=== PATIENT | female | born 1950 | race Caucasian/White ===

== ENCOUNTER → 2017-12-18 | Outpatient (CLI) | payer MEDICARE, BC ==
[~2017-12-18] MED LIST: ALLEGRA180 MG PO; ALLER-TEC D 5-1 EACH PO; ARIXTRA; BENICAR HCT 401 EAC1 PO; CALCIUM 600 +1 EA14 PO; CELEXA20 MG PO; CIPRO500 MG; CIPRO500 MG PO; COLACE100 MG PO; COZAAR 50 MG TA50 M2 PO; CYMBALTA60 MG PO; D3 DOTS2000 UNIT; ESTRACE1 MG PO; GLUCOPHAGE1000 MG PO; HYDROCODONE-AP1 EAC6 PO; JANUMET 50-1,01 EACH PO; KEFLEX500 MG PO; LEVSIN0.125 MG PO; METAMUCIL PAC1 UDPKT GT; MIRALAX255 GM PO; MOBIC15 MG PO; MOM; MUCINEX PO; MUCINEX600 MG PO; NORCO 5-325 TA1 EACH PO; OMEPRAZOLE40 MG PO; OXYCONTIN10 M1 PO; OXYIR 5 MG CAPSU5 M1 PO; PHENAZOPYRIDIN200 M2 PO; RANITIDINE HCL300 M1 PO; SIMVASTATIN40 MG PO; SUPER B COMPLE150 MG PO; TRAMADOL 50 MG50 MG PO; TRICOR145 MG PO; ZOCOR 20 MG TAB20 M1 PO
== END ==
LOC: M.MRI 08:04
DX: M19.011 Primary osteoarthritis, right shoulder (principal); M75.101 Unspecified rotator cuff tear or rupture of right shoulder, not specified as traumatic

== ENCOUNTER → 2018-07-15 | Outpatient (CLI) | payer MEDICARE, BC | LOC: M.ULTRA 12:45 → M.RAD 13:30 | DX: Z12.31 Encounter for screening mammogram for malignant neoplasm of breast (principal); M79.604 Pain in right leg; M79.605 Pain in left leg; E11.51 Type 2 diabetes mellitus with diabetic peripheral angiopathy without gangrene; Z78.0 Asymptomatic menopausal state ==

== ENCOUNTER → 2019-08-12 | Outpatient (CLI) | payer MEDICARE, BC | LOC: M.RAD 10:00 | DX: Z12.31 Encounter for screening mammogram for malignant neoplasm of breast (principal) ==

== ENCOUNTER → 2019-10-01 | Outpatient (CLI) | payer MEDICARE, BC ==
[~2019-10-01] MED LIST changes: +CEFUROXIME500 MG PO; +FLORANEX TABLE1 EACH PO; +HYDROCHLOROTHIA25 M2 PO; +IRON325 PO; +SENNA-TIME S T1 EACH PO
== END ==
LOC: M.LAB 05:26
DX: E87.6 Hypokalemia (principal)

== ENCOUNTER 2019-10-03 08:43 | Inpatient (IN) | payer MEDICARE, BC ==
[~2019-10-03] VITALS: Ht 162.6 cm; Wt 67.6 kg
[~2019-10-03 08:43] MED LIST changes: -CEFUROXIME500 MG PO; -FLORANEX TABLE1 EACH PO; -HYDROCHLOROTHIA25 M2 PO; -IRON325 PO; -SENNA-TIME S T1 EACH PO
[2019-10-03 08:54] VITALS: BP 144/68
[2019-10-03] MEDS ORDERED: HYDROCHLOROTHIA25 M2 PO (09:00)
[2019-10-03 09:51] LABS: ABSOLUTE BASOPHILS 0.1 thou/uL (0.0-0.2); ABSOLUTE LYMPHOCYTES 1.1 thou/uL (0.8-5.3); ABSOLUTE MONOCYTES 1.3 thou/uL (0.0-1.2); ABSOLUTE NEUTROPHILS 14.4 thou/uL (1.6-8.1); BASOPHILS 0.6 %; HEMATOCRIT 29.9 % (37.0-47.0); HEMOGLOBIN 9.9 gm/dL (12.0-15.0); LYMPHOCYTES 6.6 %; MCH 25.7 pg (26.0-34.0); MCHC 33.2 g/dL (28.0-37.0); MCV 77.5 fL (80.0-100.0); MONOCYTES 7.8 %; MPV 7.9 fl. (7.2-11.1); NUCLEATED RBCS 0 /100WBC; PLATELET COUNT* 364 thou/uL (150-400); RBC 3.85 mil/uL (4.20-5.00); WBC 16.9 thou/uL (4.0-11.0)
[2019-10-03 10:03] LABS: URINE BILIRUBIN NEGATIVE (Negative); URINE BLOOD TRACE (Negative); URINE CLARITY CLEAR; URINE COLOR YELLOW; URINE GLUCOSE-RANDOM NEGATIVE (Negative); URINE KETONES NEGATIVE (Negative); URINE LEUKOCYTES-REFLEX 1+ (Negative); URINE PROTEIN TRACE (Negative); URINE UROBILINOGEN 0.2 E.U./dl (0.2-1.0)
[2019-10-03 10:09] LABS: APTT 31.3 Seconds (25.0-31.3); INR 1.1
[2019-10-03 10:09] LABS: URINE NITRITE-REFLEX POSITIVE (Negative)
[2019-10-03 10:10] LABS: CALCIUM 8.4 mg/dL (8.5-10.1); CREATININE 0.9 mg/dL (0.6-1.3)
[2019-10-03 10:11] LABS: BACTERIA-REFLEX >30 Many /HPF (None Seen); MUCUS 0-3 Light strn/LPF (None Seen); SQUAMOUS 4-10 Moderate /LPF (0-3); URINE RBC 3-10 Few /HPF (0-2)
[2019-10-03 10:12] LABS: CASTS None Seen /LPF (None Seen); CRYSTALS None Seen /LPF (None Seen)
[2019-10-03 10:19] LABS: POTASSIUM 2.8 mmol/L (3.5-5.1)
[2019-10-03 10:24] LABS: ALBUMIN 3.2 g/dL (3.4-5.0); TOTAL BILIRUBIN 0.5 mg/dL (<0.1-1.0)
[2019-10-03 10:33] LABS: INFLUENZA A ANTIGEN Negative (Negative); INFLUENZA B ANTIGEN Negative (Negative)
[2019-10-03 11:39] VITALS: BP 110/48
[2019-10-03 12:30] VITALS: BP 117/59
[2019-10-03 16:25] VITALS: BP 121/70
[2019-10-03 18:13] VITALS: BP 131/58
[2019-10-03 22:49] VITALS: BP 107/50
[2019-10-04] VITALS: BP 117/57
[2019-10-04 04:00] VITALS: BP 101/52
[2019-10-04 04:25] LABS: ABSOLUTE BASOPHILS 0.1 thou/uL (0.0-0.2); ABSOLUTE LYMPHOCYTES 0.9 thou/uL (0.8-5.3); ABSOLUTE MONOCYTES 1.3 thou/uL (0.0-1.2); ABSOLUTE NEUTROPHILS 13.2 thou/uL (1.6-8.1); BASOPHILS 0.3 %; HEMOGLOBIN 8.8 gm/dL (12.0-15.0); LYMPHOCYTES 5.7 %; MCH 25.9 pg (26.0-34.0); MCHC 32.5 g/dL (28.0-37.0); MCV 79.7 fL (80.0-100.0); MONOCYTES 8.6 %; MPV 8.6 fl. (7.2-11.1); NUCLEATED RBCS 0 /100WBC; POLYS 85.4 %; RBC 3.39 mil/uL (4.20-5.00); RDW-CV 16.3 % (10.5-14.5); WBC 15.5 thou/uL (4.0-11.0)
[2019-10-04 04:34] LABS: PLATELET COUNT* 268 thou/uL (150-400)
[2019-10-04 04:44] LABS: ALBUMIN 2.7 g/dL (3.4-5.0); CALCIUM 7.4 mg/dL (8.5-10.1); CREATININE 1.2 mg/dL (0.6-1.3); TOTAL BILIRUBIN 0.4 mg/dL (<0.1-1.0); TOTAL PROTEIN 6.3 g/dL (6.4-8.2)
[2019-10-04 04:50] LABS: POTASSIUM 2.8 mmol/L (3.5-5.1)
[2019-10-04 10:00] VITALS: BP 107/58
[2019-10-04 15:42] VITALS: BP 111/61
[2019-10-04 18:36] LABS: CALCIUM 7.1 mg/dL (8.5-10.1); CREATININE 1.4 mg/dL (0.6-1.3); POTASSIUM 3.6 mmol/L (3.5-5.1)
[2019-10-05] VITALS: BP 142/59
[2019-10-05 03:41] LABS: HEMATOCRIT 23.6 % (37.0-47.0); HEMOGLOBIN 7.7 gm/dL (12.0-15.0); MCH 25.8 pg (26.0-34.0); MCHC 32.6 g/dL (28.0-37.0); MCV 79.1 fL (80.0-100.0); MPV 8.6 fl. (7.2-11.1); NUCLEATED RBCS 0 /100WBC; PLATELET COUNT* 248 thou/uL (150-400); RBC 2.99 mil/uL (4.20-5.00); RDW-CV 16.8 % (10.5-14.5); WBC 13.3 thou/uL (4.0-11.0)
[2019-10-05 03:51] LABS: ALBUMIN 2.3 g/dL (3.4-5.0); CALCIUM 7.2 mg/dL (8.5-10.1); CREATININE 1.1 mg/dL (0.6-1.3); POTASSIUM 3.4 mmol/L (3.5-5.1); TOTAL BILIRUBIN 0.3 mg/dL (<0.1-1.0); TOTAL PROTEIN 5.9 g/dL (6.4-8.2)
[2019-10-05 04:00] VITALS: BP 138/56
[2019-10-05 05:20] LABS: ABSOLUTE LYMPHOCYTES 1.1 thou/uL (0.8-5.3); ABSOLUTE MONOCYTES 0.8 thou/uL (0.0-1.2); ABSOLUTE NEUTROPHILS 11.4 thou/uL (1.6-8.1)
[2019-10-05 05:22] LABS: ANISOCYTOSIS 1+; PLATELET ESTIMATE ADEQUATE
[2019-10-05 07:30] VITALS: BP 115/58
[2019-10-05 11:32] LABS: % SATURATION 2 % (20-39)
[2019-10-05 11:34] LABS: IRON < 5 ug/dL (50-175)
[2019-10-05 16:00] VITALS: BP 120/52
[2019-10-05 20:07] VITALS: BP 130/66
[2019-10-06 04:40] LABS: HEMATOCRIT 23.7 % (37.0-47.0); HEMOGLOBIN 7.9 gm/dL (12.0-15.0); MCH 25.9 pg (26.0-34.0); MCHC 33.2 g/dL (28.0-37.0); MPV 8.5 fl. (7.2-11.1); RBC 3.04 mil/uL (4.20-5.00); RDW-CV 16.7 % (10.5-14.5); WBC 10.7 thou/uL (4.0-11.0)
[2019-10-06 05:16] LABS: ALBUMIN 2.2 g/dL (3.4-5.0); CALCIUM 7.7 mg/dL (8.5-10.1); CREATININE 0.9 mg/dL (0.6-1.3); MAGNESIUM 1.8 mg/dL (1.8-2.4); POTASSIUM 3.9 mmol/L (3.5-5.1); TOTAL BILIRUBIN 0.4 mg/dL (<0.1-1.0)
[2019-10-06 08:36] VITALS: BP 137/71
--- NOTE | 2019-10-06 12:19 | CON ---
[facility] [address] [place] [address] CONSULTATION Name: ANDREW LAZO Room: [address] IN M.R.#: [id number] Admission: 10/03/19 Attend Phys: Ariadna Ye Discharge: Date of : 48 Report #: [id number] THIS REPORT FOR: //name// cc: Nickie Thompson Linda J. DO THIS REPORT FOR: //name// CC: Nickie Kaye DICTATED BY: Socorro Faith [facility] DATE OF SERVICE: 10/05/2019 Please note that at the time of this dictation, the patient was seen and physically examined by myself. REASON FOR CONSULTATION: Fever post-procedure on 10/01/2019 and weakness. HISTORY OF PRESENT ILLNESS: This is a 68-year-old female who underwent an EGD by Dr. Lima on 10/01/2019 that showed a gastric ulcer. Biopsy is pending and she was placed on omeprazole 40 mg b.i.d. The patient states she did fine over the weekend and then she developed increasing weakness and also felt that she started running a fever, prompting her to come in to be seen. The patient's hemoglobin at the end of July was 11.3. Her last colonoscopy was in 2017, showed diverticulosis and external hemorrhoids, history of polyps with a 3-year followup. She denies any nausea, vomiting, abdominal pain, bright red blood or melanotic stool. Her bowels are moving regularly without any issues. The patient has been taking NSAIDs, Excedrin for headaches and on her medication list shows meloxicam daily as well. ALLERGIES: SULFA. MEDICATIONS: From home; omeprazole b.i.d., fenofibrate, losartan, meloxicam, metformin, citalopram and hydrochlorothiazide. PAST MEDICAL HISTORY: Diabetes, hypertension, hyperlipidemia. PAST SURGICAL HISTORY: Cholecystectomy, hysterectomy, right and left knee replacements, eyelid muscle surgery, oophorectomy, and a right kidney stent. FAMILY HISTORY: Noncontributory. SOCIAL HISTORY: Alcohol socially. Denies any tobacco or [place] [address] CONSULTATION Name: ANDREW LAZO Room: [address] IN [facility].#: [id number] Admission: 10/03/19 Attend Phys: Ariadna Ye Discharge: Date of : 48 Report #: [id number] REVIEW OF SYSTEMS: Twelve-point review of systems is essentially negative except what is mentioned in the HPI. PHYSICAL EXAMINATION: VITAL SIGNS: Temperature 36.7, pulse 98, respirations 17, blood pressure 138/56. HEART: Regular rate and rhythm. LUNGS: Clear. ABDOMEN: Soft, positive bowel sounds in all 4 quadrants with no masses or tenderness noted. LABORATORY DATA: Hemoglobin on admission was 10.9, she is down to 7.7; white count is 13.3, platelets 243. BUN was 24, she is down to 20. GFR is 49, MCV is 79.1. Urine dip positive for nitrites, leukocytes, and blood culture and sensitivity is pending. IMPRESSION: 1. Acute on chronic anemia. 2. History of gastric ulcer. Biopsies are pending from 10/01/2019. 3. Nonsteroidal anti-inflammatory drug and Excedrin use regularly. 4. Leukocytosis. 5. Urinary tract infection. PLAN: 1. Monitor for any overt bleeding. 2. Continue Protonix b.i.d. 3. Await labs, iron studies, ferritin, haptoglobin. 4. Further recommendations to be made after labs have returned. 5. We will recheck a CBC in the a.m. as well. Thank you for allowing us to participate in this patient's care. Please do not hesitate to call with any questions in regard to this consult. Agree with above assessment and plan by Socorro Faith. <ELECTRONICALLY SIGNED> By: Pierre Lima MD 10/06/19 1219 [id number] 1225Pierre Lima MD /nt
--- NOTE | 2019-10-06 13:56 | EKG ---
[place] [address] ELECTROCARDIOGRAM REPORT Name: ANDREW LAZO Room: [address] ADM IN M.R.#: [id number] Admission: 10/03/19 Attend Phys: Magdy Thompson Discharge: Date of : 48 Date of Service: 10/03/19 0928 Report #: [id number] THIS REPORT FOR: cc: Nickie Thompson Linda J. DO Holkins, John M. MD [facility] ~ THIS REPORT FOR: //name// [facility] ED Test Date: 2019-10-03 Test Time: 09:28:35 Pat Name: ANDREW LAZO Department: Room: [facility] Gender: F Drill Operator Pneumatic: : 1950 Requested By: Gab Cornelius Order Number: [id number] MD: Enio Breen Measurements Intervals [place] Rate: 93 P: 22 NH: 154 QRS: -44 QRSD: 117 T: 116 QT: 390 QTc: 486 Interpretive Statements Sinus rhythm LVH with IVCD, LAD and secondary repol abnrm Borderline prolonged QT interval Baseline wander in lead(s) V3,V6 Compared to ECG 08/17/2016 15:57:22 Intraventricular conduction delay now present Early repolarization now present Electronically Signed On 10-04-2019 15:59:17 NEWS COPY EDITOR by Enio Breen [email or web address] <ELECTRONICALLY SIGNED> By: Enio Breen MD, [facility] 10/04/19 1559 7 7 Enio Breen MD, [facility] /EPI
[2019-10-06 16:00] VITALS: BP 121/70
[2019-10-06 20:10] VITALS: BP 134/55
[2019-10-07 04:13] LABS: HEMATOCRIT 23.6 % (37.0-47.0); HEMOGLOBIN 7.8 gm/dL (12.0-15.0)
[2019-10-07] MEDS ORDERED: SENNA-TIME S T1 EACH PO (07:11)
[2019-10-07] MEDS ORDERED: FLORANEX TABLE1 EACH PO (07:11)
[2019-10-07] MEDS ORDERED: IRON325 PO (07:11)
[2019-10-07] MEDS ORDERED: CEFUROXIME500 MG PO (07:11)
[2019-10-07 07:55] VITALS: BP 155/74
[2019-10-07 10:07] VITALS: BP 155/74
== END 2019-10-07 11:51 | disposition home or self-care (01) | DRG 871 ==
LOC: M.ERS 08:43 → M.TBA-ER 10:31 → M.ORTHSURG 10:31
PROVIDERS: Emergency Medicine Emergency Medical Services; Internal Medicine; ADMIT Internal Medicine
DX: A41.59 Other Gram-negative sepsis (principal); G93.41 Metabolic encephalopathy; N39.0 Urinary tract infection, site not specified; E44.1 Mild protein-calorie malnutrition; Z96.653 Presence of artificial knee joint, bilateral; E11.9 Type 2 diabetes mellitus without complications; I10 Essential (primary) hypertension; F32.9 Major depressive disorder, single episode, unspecified; K21.9 Gastro-esophageal reflux disease without esophagitis; E78.5 Hyperlipidemia, unspecified; K27.9 Peptic ulcer, site unspecified, unspecified as acute or chronic, without hemorrhage or perforation; K57.90 Diverticulosis of intestine, part unspecified, without perforation or abscess without bleeding; D50.9 Iron deficiency anemia, unspecified; Z90.49 Acquired absence of other specified parts of digestive tract; Z90.710 Acquired absence of both cervix and uterus; Z90.721 Acquired absence of ovaries, unilateral; Z79.899 Other long term (current) drug therapy; Z79.84 Long term (current) use of oral hypoglycemic drugs; Z88.1 Allergy status to other antibiotic agents; Z88.2 Allergy status to sulfonamides; Z86.010 Personal history of colon polyps; Z82.49 Family history of ischemic heart disease and other diseases of the circulatory system; Z87.891 Personal history of nicotine dependence; Z68.25 Body mass index [BMI] 25.0-25.9, adult

== ENCOUNTER 2020-10-31 15:17 | Inpatient (IN) | payer MEDICARE, BC ==
[~2020-10-31] VITALS: Ht 165.1 cm; Wt 72.6 kg
--- NOTE | ~2020-10-31 | EEG ---
[address] [address] EEG STUDY REPORT Name: ANDREW LAZO Room: [address] IN M.R.#: [id number] Admission: 10/31/20 Attend Phys: Ariadna Ye Discharge: Date of : 48 Report #: [id number] THIS REPORT FOR: cc: Nickie Thompson Linda J. DO ~ Ovi Nolen MD DATE OF SERVICE: 11/01/2020 This patient has a history of falling down and EEG is being done to evaluate the possibility of seizure. EEG was done by placing the electrodes by 10-20 system of electrode placement. Both referential and sequential montages were used for recording. Background activity in this patient's EEG is about 9 Hz and 30 microvolt. The patient went to sleep. That is associated with bilateral slowing and vertex sharp waves. Photic stimulation is unremarkable. Throughout the record, no active epileptiform activity was noticed. IMPRESSION: This patient's EEG is unremarkable and does not demonstrate any clear-cut epileptiform activity. By: 0920 [id number] Nolen MD /nt
--- NOTE | ~2020-10-31 | CON ---
[address] [place] [address] [address] CONSULTATION Name: ANDREW LAZO Room: [address] ADM IN M.R.#: [id number] Admission: 10/31/20 Attend Phys: Ariadna Ye Discharge: Date of : 48 Report #: [id number] THIS REPORT FOR: cc: Nickie Thompson Linda J. DO ~ Khosla, Parveen K. MD DATE OF SERVICE: 10/31/2020 HISTORY OF PRESENT ILLNESS: This is a 69-year-old female patient who was evaluated by me for any neurological etiology for the patient's falls. The history is somewhat complicated. She says she does not pass out when she falls, but the says she passes out. They said first episode was in September of the last year and she had either 3 or 4 events like this. There is no tonic-clonic activity at least. In the last episode, the patient thinks she was conscious, but she started stumbling and she passed out. She remembers the event, but she does not know why she fall. REVIEW OF SYSTEMS: Positive for the fact that she has chronic back pain. She has a fracture of the humerus now. She has multiple falls over a period of time. She takes Ultram, but she has taken that for a long period of time. She does have a history of hypertension, diabetes and hyperlipidemia. She denies any ENT, respiratory, GI, , musculoskeletal, constitutional, dermatological, hematological, psychiatric, throat, allergic symptom associated with present symptomatology. She has a history of UTI, which led to sepsis in the past. FAMILY HISTORY: Positive for ND in the mother. SOCIAL HISTORY: She does not smoke and drink alcohol rarely. PHYSICAL EXAMINATION: NEUROLOGIC: She is alert, responsive, able to follow simple and complex command. Her speech looks intact. Cranial nerve examination 2-12 looks mostly unremarkable. She does have symmetrical strength, sensation, reflexes and tone in all 4 extremities, but the examination of the left upper extremity was not done except of the hand. Reflexes are diminished as expected with diabetes, but position sense and touch is present. She does not have any cerebellar sign. I could not look at the patient's fundus. She is moderately built individual. She does not have any hearing or visual problem. She does not have any edema, cyanosis or jaundice. There is no thyroid mass. There is no carotid bruit. CARDIAC: Unremarkable. LUNGS: No respiratory difficulty or rhonchi. VITAL SIGNS: Blood pressure is 144/84, respirations 16, pulse is 83 and temperature is 98.8. [place] [address] CONSULTATION Name: ANDREW LAZO Room: [address] IN M.R.#: [id number] Admission: 10/31/20 Attend Phys: Ariadna Ye Discharge: Date of : 48 Report #: [id number] LABORATORY DATA: Indicated white count of 10.0. Last GFR is 83, it was low in the September of last year, but has been okay since then. IMPRESSION AND PLAN: It is not clear what the etiology of the patient's symptoms is. It is pretty persistent and led to falls. I think neurological workup is indicated, especially to look for any drop attacks from the posterior circulation. We will get an MRI and MRA of the head done to see if any etiology can be localized. I will get an EEG done too. We will also await the physical therapy evaluation and see what they say. Thank you very much for this referral. By: 1514 lolita Nolen MD /nt
--- NOTE | ~2020-10-31 | EMS ---
[place] [address] EMS Patient Care Report Name: ANDREW LAZO Room: [place] [address] ADM IN .R.#: [id number] Admission: 10/31/20 Attend Phys: Ariadna Ye Discharge: Date of : 48 Report #: [id number] THIS REPORT FOR: //name// Report Transmitted: 10/31/2020 15:43 EMS Care Summary [facility] Incident [id number] @ 10/31/2020 14:23 Incident Location [address] [place] [address] Patient ANDREW VALENCIA Female, 69 Years 1950 Patient Address [address] [place] [address] Patient History Diabetes,Hypertension (HTN),Hyperlipidemia, Patient Allergies No known allergies, Patient Medications Metformin, Tramadol, Methocarbamol, Losartan, Atorvastatin, Chief Complaint Shoulder/Clavicle Disposition Transported No Lights/[place] Dis[place] Reason Falls Transported To [facility] Narrative Med 1 was dispatched to a local residence for a fall with a possible fractured clavicle. Med 1 responded emergent and was on scene with with E1 and [place] 1. On arrival to patient, she was a 69 year old female, walking towards EMS from her garage. Patient was able to track the arrival of EMS [place] [address] EMS Patient Care Report Name: ANDREW LAZO Room: [address] IN [facility]#: [id number] Admission: 10/31/20 Attend Phys: Ariadna Ye Discharge: Date of : 48 Report #: [id number] moderate distress. Patient stated she was walking up a slight hill on her front lawn, when she tripped and fell on her left side. Patient stated she was not able to brace her fall, and fell directly on her left should. Patient denied hitting her head or any loss of consciousness. No obvious deformity was present along the clavicle. Patient's pain began around the left acromioclavicular joint, down her shoulder and along her left ribs. Patient also denied use of blood thinners. Patient was able to walk to the cot and was secured with all straps. On assessment of patient, airway was open and patent with equal non labored rise and fall of chest. Skin was diaphoretic, pink and cool. A strong pulse was palpated on the left and right radial. Pulse, motor and sensory was in tact for all 4 extremities. Patient was alert and oriented by 4 with a GCS of 15. Once in the ambulance all vitals were monitored en route. Patient's arm was placed in a position of comfort, a HERRERA split was placed and secured with a triangle bandage. IV access was established. An initial load dose of 50 mcg of Fentanyl was administered with 4 mg of Zofran. Patient was placed on 2 liters of oxygen for her comfort. Patient was hypertensive and hyperglycemic, but stated that was in her medical history. A 12 lead was performed that displayed a sinus rhythm. Patient stated her pain was at an 8. Two additional doses of 25 mcg of Fentanyl were administered en route. Patient stated her pain continued to be an 8 after a total of 100 mcg of Fentanyl. Patient remained in stable condition and was transported non emergent to [place]. Patient was moved via draw sheet method to the bed and care was transferred to nurse in charge. Med 1 cleared and was back in service. End of report Migdalia Ramírez [id number] Initial Vitals @14:53MI Suspected: false @14:54MI Suspected: false @14:56P: 62,R: 18,BP: 166/97,Pain: 8/10,GCS: 15,SpO2: 99,Revised Trauma: 12, @15:03P: 70,R: 16,BP: 178/96,Pain: 8/10,GCS: 15,SpO2: 97,Revised Trauma: 12, @14:36P: 73,R: 18,BP: 187/96,Pain: 10/10,GCS: 15,Temp: 98.6F,Glucose: 182,SpO2: 96,Revised Trauma: 12, @15:08P: 71,R: 16,BP: 164/86,Pain: 8/10,GCS: 15,SpO2: 99,Revised Trauma: 12, Assessments @14:30MENTAL:Person Oriented,Time Oriented,Place Oriented,Event Oriented,SKIN:Pale,Diaphoresis,Other,HEENT:Head/Face: No Abnormalities,Neck/Airway: No Abnormalities,LUNG SOUNDS:General: [place] [address] EMS Patient Care Report Name: ANDREW LAZO Room: [address] IN M.R.#: [id number] Admission: 10/31/20 Attend Phys: Ariadna Ye Discharge: Date of : 48 Report #: [id number] Abnormalities,ABDOMEN:General: No Abnormalities,PELVIS//GI:EXTREMITIES:Left Arm: Weakness,Left Leg: Edema,Capillary Refill: Right Upper: < 2 Sec,Left Arm: JOAN,Left Arm: JOAN,Left Arm: JOAN,Left Arm: JOAN,Right Arm: No Abnormalities,Right Leg: No Abnormalities,PULSE:Radial: 2+ Normal,NEURO:No Abnormalities, Impression Injury of Shoulder or Upper Arm Procedures @14:56Fentanyl - 25 Micrograms (mcg) - Intravenous (IV)Response: Unchanged@14:40Fentanyl - 50 Micrograms (mcg) - Intravenous (IV)Response: Unchanged@15:08Fentanyl - 25 Micrograms (mcg) - Intravenous (IV)Response: Improved@14:42Ondansetron - 4 Milligrams (mg) - Intravenous (IV)Response: Unchanged@14:5412-Lead ECGResponse: UnchangedSucceeded@14:5312-Lead ECGResponse: UnchangedSucceeded@14:38Saline Lock 10cc (20 ga) Site: Antecubital-RightResponse: UnchangedSucceeded@14:41Oxygen FlowRate: 3 Device: Nasal Cannula (NC) Response: UnchangedSucceeded Timeline 14:22,Call Received 14:23,Dispatched 14:24,En Route 14:28,Initial Responder On Scene 14:28,On Scene 14:29,At Patient 14:36,BP: 187/96 M,PULSE: 73,RR: 18 R,SPO2: 96 Ox,ETCO2: ,B,PAIN: 10,GCS: 15, 14:38,Saline Lock 10cc 20 ga Site: Antecubital-Right,Response: UnchangedSucceeded, 14:40,Fentanyl - 50 Micrograms (mcg) - Intravenous (IV),Response: Unchanged 14:41,Oxygen FlowRate: 3 Device: Nasal Cannula (NC) Response: UnchangedSucceeded, 14:42,Ondansetron - 4 Milligrams (mg) - Intravenous (IV),Response: Unchanged 14:44,Depart Scene 14:53,12-Lead ECG,Response: UnchangedSucceeded, 14:53,BP: / M,PULSE: ,RR: R,SPO2: Ox,ETCO2: ,BG: ,PAIN: ,GCS: , 14:54,12-Lead ECG,Response: UnchangedSucceeded, 14:54,BP: / M,PULSE: ,RR: R,SPO2: Ox,ETCO2: ,BG: ,PAIN: ,GCS: , 14:56,Fentanyl - 25 Micrograms (mcg) - Intravenous (IV),Response: Unchanged 14:56,BP: 166/97 M,PULSE: 62,RR: 18 R,SPO2: 99 Ox,ETCO2: ,BG: ,PAIN: 8,GCS: 15, 15:03,BP: 178/96 M,PULSE: 70,RR: 16 R,SPO2: 97 Ox,ETCO2: ,BG: ,PAIN: 8,GCS: 15, 15:08,Fentanyl - 25 Micrograms (mcg) - Intravenous (IV),Response: Improved 15:08,BP: 164/86 M,PULSE: 71,RR: 16 R,SPO2: 99 Ox,ETCO2: ,BG: ,PAIN: 8,GCS: 15, 15:12,At Destination 15:20,Transfer Patient 15:33,[place] [address] EMS Patient Care Report Name: ANDREW LAZO Room: [address] IN .R.#: [id number] Admission: 10/31/20 Attend Phys: Ariadna Ye Discharge: Date of : 48 Report #: [id number] 15:50,In District Disclaimer v1.1 Copyright 2020 [employer] This EMS Care Summary contains data elements from the applicable legal record (which may be displayed differently). It is designed to provide pertinent information for the following purposes: continuity of care, clinical quality, and state data reporting. The complete legal record is available to ED staff and administrators of the receiving hospital in [employer] [employer] Patient Tracker. All data is provided "as is."
[~2020-10-31 15:17] MED LIST changes: +CEFUROXIME500 MG PO; +FLORANEX TABLE1 EACH PO; +HYDROCHLOROTHIA25 M2 PO; +IRON325 PO; +SENNA-TIME S T1 EACH PO
[2020-10-31 15:19] VITALS: BP 141/86
[2020-10-31] MEDS ORDERED: ROBAXIN 750 MG750 MG PO (15:24)
[2020-10-31] MEDS ORDERED: CELEBREX 200 M200 MG PO (15:25)
[2020-10-31] MEDS ORDERED: LIPITOR10 MG PO (15:25)
[2020-10-31] MEDS ORDERED: VITAMIN D310 MC4 (15:26)
[2020-10-31] MEDS ORDERED: KLOR-CON 10 ER10 MEQ (15:26)
[2020-10-31] MEDS ORDERED: MULTIVITAMIN (15:27)
[2020-10-31] MEDS ORDERED: FISH OIL 1,0001 EAC9 PO (15:27)
[2020-10-31 15:40] LABS: ABSOLUTE BASOPHILS 0.1 thou/uL (0.0-0.2); ABSOLUTE EOSINOPHILS 0.2 thou/uL (0.0-0.7); ABSOLUTE LYMPHOCYTES 2.5 thou/uL (0.8-5.3); ABSOLUTE MONOCYTES 0.5 thou/uL (0.0-1.2); ABSOLUTE NEUTROPHILS 7.3 thou/uL (1.6-8.1); BASOPHILS 0.8 %; EOSINOPHILS 1.5 %; HEMATOCRIT 38.6 % (37.0-47.0); HEMOGLOBIN 12.7 gm/dL (12.0-15.0); LYMPHOCYTES 23.9 %; MCH 28.4 pg (26.0-34.0); MCHC 32.8 g/dL (28.0-37.0); MCV 86.5 fL (80.0-100.0); MONOCYTES 4.5 %; MPV 8.4 fl. (7.2-11.1); NUCLEATED RBCS 0 /100WBC; PLATELET COUNT* 305 thou/uL (150-400); POLYS 69.3 %; RBC 4.46 mil/uL (4.20-5.00); RDW-CV 13.9 % (10.5-14.5); WBC 10.5 thou/uL (4.0-11.0)
[2020-10-31 15:45] LABS: CALCIUM 8.5 mg/dL (8.5-10.1); CREATININE 0.9 mg/dL (0.6-1.3); POTASSIUM 3.4 mmol/L (3.5-5.1)
[2020-10-31 15:54] LABS: ALBUMIN 3.9 g/dL (3.4-5.0); TOTAL BILIRUBIN 0.3 mg/dL (<0.1-1.0); TOTAL PROTEIN 7.1 g/dL (6.4-8.2)
[2020-10-31 16:25] LABS: PROTIME 10.9 Seconds (9.20-11.50)
[2020-10-31 19:45] VITALS: BP 141/78
[2020-11-01] VITALS (7 sets, daily range): BP systolic 118–175; BP diastolic 84–99
[2020-11-01 05:08] LABS: HEMOGLOBIN 11.5 gm/dL (12.0-15.0); MCH 28.1 pg (26.0-34.0); MCHC 32.8 g/dL (28.0-37.0); MCV 85.7 fL (80.0-100.0); MPV 8.3 fl. (7.2-11.1); RBC 4.09 mil/uL (4.20-5.00); RDW-CV 13.9 % (10.5-14.5)
[2020-11-01 05:24] LABS: CALCIUM 8.6 mg/dL (8.5-10.1); CREATININE 0.7 mg/dL (0.6-1.3); POTASSIUM 3.7 mmol/L (3.5-5.1)
--- NOTE | 2020-11-01 12:58 | EKG ---
[place] [address] ELECTROCARDIOGRAM REPORT Name: ANDREW LAZO Room: [address] ADM IN M.R.#: [id number] Admission: 10/31/20 Attend Phys: Magdy Thompson Discharge: Date of : 48 Date of Service: 10/31/20 1710 Report #: [id number] THIS REPORT FOR: //name// [facility] ED Test Date: 2020-10-31 Test Time: 17:10:07 Pat Name: ANDREW LAZO Department: Room: [facility] Gender: F Ammonium Nitrate Neutralizer: CCD : 1950 Requested By: Pancho Schmidt Order Number: [id number] MD: Enio Breen Measurements Intervals [place] Rate: 74 P: 18 MO: 153 QRS: -43 QRSD: 116 T: 96 QT: 396 QTc: 440 Interpretive Statements Sinus rhythm LVH with IVCD, LAD and secondary repol abnrm Compared to ECG 10/03/2019 09:28:35 No significant changes Electronically Signed On 11-01-2020 12:58:07 LOAN PROCESSING SUPERVISOR by Enio Breen [email or web address] <ELECTRONICALLY SIGNED> By: Enio Breen MD, [facility] 11/01/20 1258 1710 1710 Enio Breen MD, [facility] /EPI
--- NOTE | 2020-11-01 16:42 | 2DMMODE ---
[place] [address] 2 D/M-MODE ECHOCARDIOGRAM Name: ANDREW LAZO Room: [address] IN .R.#: [id number] Admission: 10/31/20 Attend Phys: Magdy Thompson Discharge: Date of : 48 Date of Service: 11/01/20 1642 Report #: [id number] THIS REPORT FOR: cc: Nickie Thompson,Nickie Urias,Enio Cherry MD [facility] ~ APPROVED REPORT Study performed: 11/01/2020 13:14:58 EXAM: Comprehensive 2D, Doppler, and color-flow Echocardiogram Patient Location: In-Patient Room #: [facility] Status: routine BSA: 1.80 HR: 83 bpm BP: 144/84 mmHg Rhythm: NSR Other Information Study Quality: Good Indications Syncope 2D Dimensions IVSd: 14.94 (7-11mm) LVOT Diam: 20.02 (18-24mm) LVDd: 39.00 mm PWd: 12.07 (7-11mm) Ascending Ao: 27.69 (22-36mm) LVDs: 20.86 (25-40mm) Aortic Root: 32.49 mm Volumes Left Atrial Volume (Systole) LA ESV Index: 19.50 mL/m2 Aortic Valve AoV Peak Cayetano.: 1.57 m/s AO Peak Gr.: 9.87 mmHg LVOT Max P.81 mmHg AO Mean Gr.: 5.89 mmHg LVOT Mean P.79 mmHg LVOT Max V: 1.21 m/s AO V2 VTI: 29.51 cm LVOT Mean V: 0.77 m/s BLAS (VTI): 2.34 cm2 LVOT V1 VTI: 21.90 [place] [address] 2 D/M-MODE ECHOCARDIOGRAM Name: VIOLETANDREW PEARSON Room: [address] IN .R.#: [id number] Admission: 10/31/20 Attend Phys: Magdy Thompson Discharge: Date of : 48 Date of Service: 11/01/20 1642 Report #: [id number] Mitral Valve E/A Ratio: 0.83 MV Decel. Time: 232.06 ms MV E Max Cayetano.: 0.76 m/s MV PHT: 67.30 ms MVA (PHT): 3.27 cm2 TDI E/Lateral E': 8.44 E/Medial E': 9.50 Medial E' Cayetano.: 0.08 m/s Lateral E' Cayetano.: 0.09 m/s Pulmonary Valve PV Peak Cayetano.: 1.21 m/s PV Peak Gr.: 5.89 mmHg Left Ventricle The left ventricle is normal size. There is normal LV segmental wall motion. Mild concentric left ventricular hypertrophy. Left ventricular systolic function is normal. The left ventricular ejection fraction is within the normal range. LVEF is 60-65%. Grade I - abnormal relaxation pattern. Right Ventricle The right ventricle is normal size. The right ventricular systolic function is normal. Atria The left atrium size is normal. The right atrium size is normal. Aortic Valve The aortic valve is normal in structure. No aortic regurgitation is present. There is no aortic valvular stenosis. Mitral Valve The mitral valve is normal in structure. Trace mitral regurgitation. No evidence of mitral valve stenosis. Tricuspid Valve The tricuspid valve is normal in structure. Unable to assess PA pressure. Trace tricuspid regurgitation. Pulmonic Valve The pulmonary valve is normal in structure. There is no pulmonic [place] [address] 2 D/M-MODE ECHOCARDIOGRAM Name: ANDREW LAZO Room: [address] IN [facility]#: [id number] Admission: 10/31/20 Attend Phys: Magdy Thompson Discharge: Date of : 48 Date of Service: 11/01/20 1642 Report #: [id number] Great Vessels The aortic root is normal in size. IVC is normal in size and collapses >50% with inspiration. Pericardium There is no pericardial effusion. <Conclusion> The left ventricle is normal size. Mild concentric left ventricular hypertrophy. Left ventricular systolic function is normal. The left ventricular ejection fraction is within the normal range. LVEF is 60-65%. Grade I - abnormal relaxation pattern. The right ventricle is normal size. The left atrium size is normal. The aortic valve is normal in structure. The mitral valve is normal in structure. The tricuspid valve is normal in structure. IVC is normal in size and collapses >50% with inspiration. There is no pericardial effusion. There is normal LV segmental wall motion. <ELECTRONICALLY SIGNED> By: Enio Breen MD, FACC 11/01/201641 41 41 Enio Breen MD, FACC /INF
[2020-11-02 00:30] VITALS: BP 166/77
[2020-11-02 05:40] VITALS: BP 174/82
[2020-11-02 07:57] VITALS: BP 174/88
[2020-11-02 12:31] VITALS: BP 151/87
[2020-11-02 16:00] VITALS: BP 170/83
[2020-11-02 20:00] VITALS: BP 174/79
[2020-11-03] VITALS: BP 148/83
[2020-11-03 04:00] VITALS: BP 145/78
[2020-11-03] MEDS ORDERED: IBUPROFEN 800800 M1 PO (07:24)
[2020-11-03] MEDS ORDERED: HYDROCODON-ACE1 EAC7 PO (07:24)
[2020-11-03] MEDS ORDERED: LIDOPATCH1 EACH TOP (07:24)
[2020-11-03 08:00] VITALS: BP 144/88
[2020-11-03 12:16] VITALS: BP 144/88
[2020-11-03 14:55] VITALS: BP 144/88
== END 2020-11-03 13:00 | disposition home or self-care (01) | DRG 563 ==
LOC: M.ERS 15:17 → M.ORTHSURG 15:58 → M.TBA-ER 15:58 → M.ORTHSURG 19:28 → M.2W 11-01 09:21
PROVIDERS: Family Medicine; ADMIT Internal Medicine; ATTEND Internal Medicine
DX: S42.202A Unspecified fracture of upper end of left humerus, initial encounter for closed fracture (principal); Z96.653 Presence of artificial knee joint, bilateral; E11.9 Type 2 diabetes mellitus without complications; I10 Essential (primary) hypertension; E78.5 Hyperlipidemia, unspecified; E87.6 Hypokalemia; K21.9 Gastro-esophageal reflux disease without esophagitis; G89.29 Other chronic pain; M54.9 Dorsalgia, unspecified; Z20.822 Contact with and (suspected) exposure to COVID-19; Z82.49 Family history of ischemic heart disease and other diseases of the circulatory system; W17.89XA Other fall from one level to another, initial encounter; Z90.49 Acquired absence of other specified parts of digestive tract; Z90.710 Acquired absence of both cervix and uterus; Z90.721 Acquired absence of ovaries, unilateral; Z88.2 Allergy status to sulfonamides; Z80.1 Family history of malignant neoplasm of trachea, bronchus and lung; Y93.89 Activity, other specified; Y92.89 Other specified places as the place of occurrence of the external cause; Y99.8 Other external cause status